=== PATIENT | male | born 2000 | race Hispanic/Latino ===

== ENCOUNTER 2019-08-10 12:21 | Emergency (ER) | payer OTHER ==
[~2019-08-10] VITALS: Ht 172.7 cm; Wt 61.2 kg
[2019-08-10] MEDS ORDERED: SODIUM CHLORIDE 0.9% 1000ML 1,000 ML IV STA (13:10)
[2019-08-10] MEDS ORDERED: ACETAMINOPHEN 325 MG TAB PO ONE (13:15)
[2019-08-10] MEDS ORDERED: ONDANSETRON HCL INJ 2MG/ML 2ML 2 MG/ML VIAL IV ONE (13:15)
[2019-08-10] MEDS ORDERED: FAMOTIDINE 20 MG/2 ML VIAL IV ONE (13:15)
--- NOTE | 2019-08-10 13:49 | Diagnostic Imaging Report ---
EXAMINATION: ABDOMEN 3 VIEW-HOPD INDICATION: Abdominal pain COMPARISON: None FINDINGS: LINES/TUBES:None LUNGS:The lungs are well-inflated. No focal consolidation or pulmonary edema. PLEURA:No pleural effusion or pneumothorax. MEDIASTINUM:The cardiomediastinal silhouette appears normal in size and shape. BONES/SOFT TISSUES:No acute osseous injury. ABDOMEN:No free air under the diaphragm. Nonobstructive bowel gas pattern. No abnormal calcifications. Osseous structures unremarkable. IMPRESSION: Clear lungs. Nonobstructive bowel gas pattern. No free air. Signed by: Martha Gaitan MD on 08/10/2019 1:45 PM
[2019-08-10] MEDS ORDERED: SODIUM CHLORIDE 0.9% 1000ML 1,000 ML ONE (13:54)
[2019-08-10 14:39] VITALS: BP 136/79
== END 2019-08-10 14:43 | disposition home or self-care (01) ==
LOC: FSED 12:21
DX: R10.13 Epigastric pain (principal); K29.00 Acute gastritis without bleeding
CPT/HCPCS: 74021; 80048; 80076; 81003; 85025; 99284; J2405; J7030